=== PATIENT | male | born 1955 | race Caucasian/White ===

== ENCOUNTER → 2020-11-12 | Outpatient (REF) | payer MEDICARE | LOC: M SMT 11:55 | PROVIDERS: ATTEND Nurse Practitioner Family | DX: N39.0 Urinary tract infection, site not specified (principal) | CPT/HCPCS: 87086; G0463 ==

== ENCOUNTER → 2020-11-23 | Outpatient (CLI) | payer MEDICARE ==
--- NOTE | 2020-11-23 12:16 | REPPI ---
INDICATION: elevated PSA. COMPARISON: None. TECHNIQUE: Transrectal prostate ultrasound performed, with ultrasound guidance provided for Dr. Barker who performed ultrasound-guided biopsy. FINDINGS: Prostate measures 4.0 x 3.6 x 4.8 cm, total volume 35.4 mL. Echotexture is heterogeneous with scattered tiny cysts and calcifications. There is a nodule in the right posterior base of the prostate measuring 8 x 7 mm. Seminal vesicles appear symmetrical. IMPRESSION: Prostate ultrasound as above, ultrasound guidance was provided for Dr. Barker who performed ultrasound-guided biopsy of the prostate. <Electronically signed by Santino Carter > 11/23/20 1267
== END ==
LOC: M SMT PRO 10:37
PROVIDERS: ATTEND Urology
DX: C61 Malignant neoplasm of prostate (principal)
CPT/HCPCS: 55700; 76872; 76942; G0416